=== PATIENT | female | born 1970 | race Caucasian/White ===

== ENCOUNTER 2016-12-26 11:09 | Emergency (ER) | payer MEDICARE, MEDICAID ==
--- NOTE | 2016-12-31 16:13 | ER ---
ADMIT: 12/26/2016 RM/LOC: ER [facility] MR#: [id number] [address] [id number] KAYCE CRONIN [address] [place] [address] Emergency Room Report SEX: F AGE: 46 : 1970 DATE: 12/26/2016 ADDENDUM: CHIEF COMPLAINT: Shakiness. HISTORY OF PRESENT ILLNESS: This is a 46-year-old female, who has a history of diabetes and end-stage renal disease, heart disease, and anxiety. She comes to the ER for shakiness. When I questioned her more, came to find out she ran out of her Xanax 2 days ago. She usually takes it t.i.d. and she had not taken it until this morning when she was able to refill her prescription. She did take 0.5 prior to arrival, but still just felt very shaky. I told her most likely this is from her just withdrawing from the Xanax. I did give her 0.5 here in the ER. Since she is dialysis I did check her CBC and BMP. Abnormal findings were that her hemoglobin was 10.8, which she said this is stable for her. Potassium was slightly elevated at 5.5. She will do dialysis again on Wednesday. I did run this by Dr. Ferrari. He feels as though dialysis is not something we need to correct at this time. CLINICAL IMPRESSION: 1. Anxiety. 2. Benzodiazepine withdraw. DISPOSITION: She does feel slightly better, just very sleepy after the second Xanax. She feels okay going home and will follow up as needed. LOLY Pratt / Ismael Ferrari MD / xavier JOB #: [id number] CC: Ismael Ferrari MD, Attending Physician Chloe Roberson APRN, Family Physician
== END 2016-12-26 13:35 | disposition home or self-care (01) ==
LOC: ER 11:09
DX: F41.9 Anxiety disorder, unspecified (principal); F19.939 Other psychoactive substance use, unspecified with withdrawal, unspecified; E87.5 Hyperkalemia; E11.9 Type 2 diabetes mellitus without complications; I10 Essential (primary) hypertension; Z99.2 Dependence on renal dialysis; Z79.82 Long term (current) use of aspirin; Z79.899 Other long term (current) drug therapy